=== PATIENT | female | born 1995 | race Caucasian/White ===

== ENCOUNTER 2019-12-12 19:05 | Emergency (ER) | payer MEDICAID, MEDICARE ==
[~2019-12-12] VITALS: Ht 162.6 cm; Wt 56.7 kg
--- NOTE | 2019-12-12 19:23 | NUR ---
Patient to ER bed 4 to gown for evaluation. Side rails up. Report given to Tara MAYO.
[2019-12-12 19:24] VITALS: BP_SYST 129
--- NOTE | 2019-12-12 19:36 | NUR ---
PORTABLE X-RAY AT THE BEDSIDE
--- NOTE | 2019-12-12 19:42 | NUR ---
ER DR. GIMENEZ AT THE BEDSIDE EVALUATING PT
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
[2019-12-12] MEDS ORDERED: MIDAZOLAM HCL 5 MG/5 ML VIAL IVP ONE (20:00)
[2019-12-12] MEDS ORDERED: NS 500 ML IV ONE (20:00)
[2019-12-12] MEDS ORDERED: KETAMINE 30 MG/3 ML SYRINGE IVP ONE (20:00)
--- NOTE | 2019-12-12 20:00 | NUR ---
# 20 gauge angiocath placed to LAC. Use of asceptic technique. Opsite placed over site. Blood return noted. Blood for lab drawn from site. Flushed with 10 cc of normal saline. No evidence of infiltration noted. Patient tolerated well. Addendum: 12/12/19 at 2046 by [email or web address] # 20 gauge angiocath placed to LAC. Use of asceptic technique. Opsite placed over site. Blood return noted. Flushed with 10 cc of normal saline. No evidence of infiltration noted. Patient tolerated well.
--- NOTE | 2019-12-12 20:46 | NUR ---
TIMEOUT COMPLETED AT BEDSIDE WITH LEANNE HERNADEZ, RT, ADRIANA, EMT AND HAKEEM RN. CONSENT AND PROCEDURE CONFIRMED WELL PATIENT
--- NOTE | 2019-12-12 20:47 | NUR ---
SEDATION BEGAN WITH DR Capri GIMENEZ AT BEDSIDE ADMINISTERING VERSED 2 MG IVP AND KETAMINE 60 MG IVP. PATIENT TOLERATING WELL.
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
--- NOTE | 2019-12-12 21:04 | NUR ---
RADIOLOGY AT BEDSIDE FOR POST REDUCTION FILMS
--- NOTE | 2019-12-12 21:05 | NUR ---
Ronni billingsley in EDM - 12/12/19 at 2106 by [email or web address] TIMEOUT COMPLETED AT BEDSIDE WITH LEANNE HERNADEZ, RT, ADRIANA, EMT AND GAEL PALACIO. CONSENT AND PROCEDURE CONFIRMED WELL PATIENT
--- NOTE | 2019-12-12 21:25 | NUR ---
PATIENT NOW AT RST SCORE OF 13. PATIENT IS NOW AOX4. PATIENT'S VITALS ARE WITHIN NORMAL SALINE. WILL CONTINUE TO MONITOR.
--- NOTE | 2019-12-12 21:45 | NUR ---
PATIENT RETURNED TO BASELINE. SITTING UP IN BED. REPORTS NO PAIN. PATIENT'S MOTHER AWAITING PATIENT'S DISCHARGE.
[2019-12-12 22:38] VITALS: BP_SYST 128
--- NOTE | 2019-12-12 22:38 | NUR ---
Patient given written and verbal discharge instructions and verbalizes understanding. ER MD discussed with patient the results and treatment provided. Patient in stable condition. ID arm band removed. IV catheter removed intact and dressing applied, no active bleeding. Rx of [place] and motrin given. Patient educated on pain management and to follow up with PMD. Pain Scale 0/10 Opportunity for questions provided and answered. Medication side effect fact sheet provided.
== END 2019-12-12 22:38 | disposition home or self-care (01) ==
LOC: SED 19:05
DX: S82.391A Other fracture of lower end of right tibia, initial encounter for closed fracture (principal); S82.491A Other fracture of shaft of right fibula, initial encounter for closed fracture; F41.9 Anxiety disorder, unspecified; Z88.0 Allergy status to penicillin; X50.1XXA Overexertion from prolonged static or awkward postures, initial encounter; Y93.51 Activity, roller skating (inline) and skateboarding; Y92.89 Other specified places as the place of occurrence of the external cause; Y99.8 Other external cause status
CPT/HCPCS: 29505; 73610; 96361; 96374; 96375; 99285; J2250; J7040